=== PATIENT | female | born 1950 | race Two or more races ===

== ENCOUNTER 2023-03-21 10:20 | Outpatient (REF) | payer MEDICARE, MEDICAID, SELFPAY ==
[2023-03-21 13:54] LABS: MANUAL DIFF FLAG NO
[2023-03-21 14:21] LABS: Estimated Average Glucose 134 mg/dL; Hemoglobin A1C 148.7942 umol/L; Hemoglobin A1c % 6.3 %
[2023-03-21 14:34] LABS: Basophils Absolute Auto 0.1 X10*3/uL (0.0-0.2)
[2023-03-21 14:50] LABS: Red Blood Count 4.52 X10*6/uL (4.20-5.50); White Blood Count 8.3 X10*3/uL (4.8-10.8)
[2023-03-21 14:51] LABS: Mean Corpuscular Hemoglobin 26.5 pg (27.0-33.0); Mean Corpuscular Volume 84.1 fL (80.0-98.0)
[2023-03-21 14:52] LABS: Mean Corpuscular HGB Conc 31.6 g/dl (31.0-35.0); Platelet Count 250 X10*3/uL (160-400); Red Cell Distribution Width 15.4 % (11.0-16.0)
[2023-03-21 14:53] LABS: Imm Gran Pct Auto 0.7 % (0.0-0.4); Neutrophils Percent Auto 60.8 % (45-73)
[2023-03-21 14:54] LABS: Eosinophils Percent Auto 3.3 % (0-4); Lymphocytes Percent Auto 26.2 % (20-40)
[2023-03-21 14:55] LABS: Imm Gran Abs Auto 0.06 X10*3/uL (0.00-0.03)
[2023-03-21 14:56] LABS: Eosinophils Absolute Auto 0.3 X10*3/uL (0.0-0.4); Lymphocytes Absolute Auto 2.2 X10*3/uL (1.2-4.9); Monocytes Absolute Auto 0.7 X10*3/uL (0.1-1.2)
[2023-03-21 15:12] LABS: Alanine Aminotransferase 12 U/L (0-31); Albumin Level 4.1 g/dL (3.5-5.0); Alkaline Phosphatase 97 U/L (39-117); Anion Gap 12 (12-20); Aspartate Amino Transferase 17 U/L (5-31); Bilirubin Total 0.4 mg/dL (0.0-1.0); Blood Urea Nitrogen 16 mg/dL (9-16); Calcium 9.9 mg/dL (8.4-10.2); Carbon Dioxide 29 mmol/L (22-29); Chloride 106 mmol/L (96-108); Estimated Glomerular Filt Rate > 60; Glucose Random 96 mg/dL (60-115); Iron 67 mcg/dL (30-160); Percent Iron Saturation 24 % (15-50); Potassium 4.7 mmol/L (3.3-5.1); Sodium 142 mmol/L (135-145); Total Iron Binding Capacity 275 mcg/dL (228-428); Total Protein 7.8 g/dL (6.5-8.0); Unsaturated Iron Binding 208 ug/dL
[2023-03-21 15:40] LABS: Ferritin 117 ng/mL (10-250); Folate 6.1 ng/mL (> or = 4.0); Vitamin B12 231 pg/mL (200-900); Vitamin D 25-OH Total 43.5 ng/mL (>30)
== END 2023-03-21 10:21 | disposition home or self-care (01) ==
LOC: HO.MANLDS 10:20
PROVIDERS: Internal Medicine; Visit Provider Physician Assistant
DX: I10 Essential (primary) hypertension (principal); E55.9 Vitamin D deficiency, unspecified; G93.32 Myalgic encephalomyelitis/chronic fatigue syndrome
CPT/HCPCS: 36415; 80053; 82306; 82607; 82728; 82746; 83036; 83540; 85025